=== PATIENT | female | born 1970 | race Caucasian/White ===

== ENCOUNTER → 2016-09-25 | Outpatient (CLI) | payer OTHER ==
[~2016-09-25] MED LIST: ALDACTONE25 MG PO; BACTRIM DS1 TAB PO; BYSTOLIC5 MG PO; TORADOL10 MG PO
== END | disposition disaster alternative care site (69) ==
LOC: GRAD 12:30
DX: R10.9 Unspecified abdominal pain (principal); N20.0 Calculus of kidney; N85.8 Other specified noninflammatory disorders of uterus